=== PATIENT | female | born 1970 | race Caucasian/White ===

== ENCOUNTER 2018-10-01 15:21 | Emergency (ER) | payer BC ==
[~2018-10-01] VITALS: Ht 162.6 cm; Wt 103.9 kg
[2018-10-01 15:45] VITALS: BP 156/87; Ht 162.6 cm; Wt 103.9 kg
== END 2018-10-01 19:37 | disposition home or self-care (01) ==
LOC: ED 15:21
DX: S86.012A Strain of left Achilles tendon, initial encounter (principal); S86.011A Strain of right Achilles tendon, initial encounter; M77.52 Other enthesopathy of left foot and ankle; M77.51 Other enthesopathy of right foot and ankle; I10 Essential (primary) hypertension; E66.9 Obesity, unspecified; Z68.39 Body mass index [BMI] 39.0-39.9, adult; Z98.890 Other specified postprocedural states; Z90.49 Acquired absence of other specified parts of digestive tract; W21.07XA Struck by softball, initial encounter; Y93.64 Activity, baseball; Y92.89 Other specified places as the place of occurrence of the external cause; Y99.8 Other external cause status